=== PATIENT | male | born 1995 | race Caucasian/White ===

== ENCOUNTER 2017-03-30 15:48 | Emergency (ER) | payer SELFPAY ==
--- NOTE | 2017-03-30 16:58 | ED Physician Documentation ---
PD HPI SKIN - Stated complaint Stated Complaint: R ELBOW SWELLING - Chief complaint Chief Complaint: Ext Problem - History obtained from History obtained from: Patient - History of Present Illness Timing - onset: How many days ago (2-3 days of redness and swelling posterior elbow. It did drain last night, but is still red and swollen. Concerned for infection. Has been soaking and warm towels. He does work out regularly at gym.) Timing - duration: Days Timing - details: Gradual onset Location: RUE (posterior righ elbow.) Quality / character: Painful, Discolored (red), Swelling, Draining Associated symptoms: No: Fever, Myalgias, N/V/D Similar symptoms before: Has not had sx before Recently seen: Not recently seen Review of Systems Constitutional: denies: Fever, Chills Skin: reports: Lesions Neurologic: denies: Focal weakness, Numbness PD PAST MEDICAL HISTORY - Past Medical History Past Medical History: No - Past Surgical History Past Surgical History: Yes General: Bowel surgery - Present Medications Home Medications: Ambulatory Orders Medication Instructions Recorded Confirmed Sulfamethox/Trimeth 800/160 1 each PO BID #14 tablet 03/30/17 [Bactrim Ds 800/160] - Allergies Allergies/Adverse Reactions: Allergies Allergy/AdvReac Type Severity Reaction Status Date / Time No Known Drug Allergies Allergy Verified 03/30/17 15:58 - Social History Does the pt smoke?: No Smoking Status: Never smoker PD ED PE NORMAL - Vitals Vital signs reviewed: Yes - General General: Alert and oriented X 3, No acute distress, Well developed/nourished - Derm Derm: Normal color, Warm and dry - Extremities Extremities: Other (right posterior elbow with soft tissue swelling and tenderness, redness and firm, with central small hole that has faint drainage. No fluctuance felt. No effusion of the joint and the bursal sac does not feel enlarged (but is superficial and behind the bursa).) - Neuro Neuro: No motor deficit, No sensory deficit Results - Vitals Vitals: Oxygen O2 Source Room air - Labs Labs: Microbiology 03/30/17 17:39 Wound Culture - Preliminary Elbow - Right Staphylococcus Aureus PD MEDICAL DECISION MAKING - ED course Complexity details: considered differential (bedside U/S showed local inflammation without fluid collection (2-3 mm of fluid just at the opening of the abscess, so can spontaneously drain). No I&D indicated at this time. Does not appear to go into bursal sac. ), d/w patient Departure - Departure Disposition: 01 Home, Self Care Clinical Impression: Abscess of elbow Condition: Stable Record reviewed to determine appropriate education?: Yes Instructions: ED Staph Infec Abx Tx Only Prescriptions: Sulfamethox/Trimeth 800/160 [Bactrim Ds 800/160] 1 each PO BID #14 tablet Comments: Warm soaks or moist towels to the area periodically every 2-3 hours today and tomorrow to help promote drainage and increased blood flow to the area. Bactrim twice daily for a week for the infection. There does not appear to be any persistent abscess (fluid accumulation) and so does seem to be drained appropriately right now. Promote that with the warm soaks and sometimes a little pressure around it. There is inflammation and infection of the tissue still however and so the antibiotics for that. Recheck if not improving well over the next 2-3 days and it should resolve completely by about 5 or 6 days. Tylenol or ibuprofen as needed for pain. At the hydrocodone overnight into tomorrow if needed and then should be able to be less pain medicine after that. Follow-up with your primary care if not fully resolved in the appropriate time course. Discharge Date/Time: 03/30/17 18:17
[2017-03-30] MEDS ORDERED: LIDOCAINE MPF 1%-EPI 1:200000 30 ML VIAL SUBQ STA (17:16)
[2017-03-30] MEDS ORDERED: HYDROcod/ACET 5/325 Prepack 6 PO STA (17:48)
[2017-03-30] MEDS ORDERED: HYDROcod/ACETAM 5/325 MG TABLET PO STA (17:48)
[2017-03-30] MEDS ORDERED: SULFAMETH/TRIMETH DS 800/160 MG TABLET PO STA (17:48)
[2017-03-30 18:08] VITALS: BP 138/51
== END 2017-03-30 18:17 | disposition home or self-care (01) ==
LOC: ED 15:48
DX: L02.413 Cutaneous abscess of right upper limb (principal)
CPT/HCPCS: 87070; 87205; 99283; A9270

== ENCOUNTER 2020-09-26 17:03 | Outpatient (CLI) | payer OTHER | END 2020-09-26 17:04 | disposition home or self-care (01) | LOC: COV 17:03 | PROVIDERS: ATTEND Family Medicine | DX: U07.1 COVID-19 (principal) ==